=== PATIENT | male | born 1950 | race Caucasian/White ===

== ENCOUNTER 2022-09-19 08:54 | Day surgery (SDC) | payer MEDICARE ==
[~2022-09-19] VITALS: Ht 182.9 cm; Wt 79.0 kg
[~2022-09-19 08:54] MED LIST: CARV3.125 PO; CYCL10 PO; DESL5 PO; FLUD.1 PO; Fludrocortison0.1 MG PO; HYDCOR10 PO; HYDMOR2 PO; HYDR1TAB94 PO; IBUP800 PO; LEVSOD150 PO; OXYC10TA19 PO; PAIN RELIEVER500 MG PO; RABE20 PO; RXCYCL10 PO; TAMS.4ER PO; TRAM50 PO; [UNRECOGNIZED DRUG - REMARK]
== END 2022-09-19 11:15 | disposition home or self-care (01) ==
LOC: ORSCSDS 08:54
PROVIDERS: Surgery
PROC: 0DJD8ZZ Inspection of Lower Intestinal Tract, Via Natural or Artificial Opening Endoscopic (ICD-10-PCS; principal; 2022-09-19 10:30)
DX: K62.5 Hemorrhage of anus and rectum (principal); Z86.010 Personal history of colon polyps; K59.00 Constipation, unspecified; K21.9 Gastro-esophageal reflux disease without esophagitis; E78.5 Hyperlipidemia, unspecified; E03.9 Hypothyroidism, unspecified; I42.9 Cardiomyopathy, unspecified; Z87.891 Personal history of nicotine dependence; Z79.899 Other long term (current) drug therapy
CPT/HCPCS: J2704; J7120

== ENCOUNTER 2024-08-11 11:42 | Emergency (ER) | payer MEDICARE ==
[~2024-08-11] VITALS: Ht 182.9 cm; Wt 78.0 kg
[~2024-08-11 11:42] MED LIST changes: +ACET500 PO; -PAIN RELIEVER500 MG PO
[2024-08-11 12:47] LABS: Source, Urine Clean Catch
[2024-08-11 12:50] LABS: Appearance, Urine Hazy (Clear); Bilirubin, Urine Neg (Neg); Blood, Urine 3+ (Neg); Color, Urine Yellow (P-Yellow); Glucose Qualitative, Urine Neg (Neg); Ketones, Urine Neg (Neg); Leukocyte Esterase, Urine 1+ (Neg); Nitrite, Urine Pos (Neg); Protein, Urine 3+ (Neg); Urobilinogen, Urine 2+ (Normal); pH, Urine 6.5 (5.0-8.0)
[2024-08-11 12:56] LABS: BASOPHILS ABSOLUTE AUTO 0.09 K/mm3 (0.00-0.23); BASOPHILS PERCENT AUTO 1 % (0-2); EOSINOPHILS ABSOLUTE AUTO 0.11 K/mm3 (0.00-0.68); EOSINOPHILS PERCENT AUTO 1 % (0-6); Hematocrit 43.1 % (37.0-53.0); Hemoglobin 15.1 g/dL (13.5-17.5); IMMATURE GRAN ABSOLUTE AUTO 0.06 K/mm3 (0.00-0.10); IMMATURE GRAN PERCENT AUTO 0 % (0-1); LYMPHOCYTES ABSOLUTE AUTO 2.56 K/mm3 (0.84-5.20); LYMPHOCYTES PERCENT AUTO 16 % (21-46); MONOCYTES ABSOLUTE AUTO 2.41 K/mm3 (0.16-1.47); MONOCYTES PERCENT AUTO 15 % (4-13); Mean Corpuscular HGB 30.6 pg (26.0-34.0); Mean Corpuscular Volume 87 fL (80-100); Mean Platelet Volume 12.9 fL (9.1-12.4); NEUTROPHILS ABSOLUTE AUTO 11.22 K/mm3 (1.96-9.15); NEUTROPHILS PERCENT AUTO 68 % (41-73); Platelet Count 147 K/mm3 (150-400); RDW Coefficient Variation 12.3 % (11.7-14.2); RDW Standard Deviation 39.5 fL (35.1-46.3); Red Blood Cell Count 4.93 M/mm3 (4.30-5.90); White Blood Cell Count 16.45 K/mm3 (4.00-11.30)
[2024-08-11 13:00] LABS: Bacteria Many /hpf; Squamous Epithelial Cells Rare /hpf (Few)
[2024-08-11 13:16] LABS: Albumin, Blood 3.5 g/dL (3.4-5.0); Albumin/Globulin Ratio 1.1 (0.8-1.8); Bilirubin, Total 1.4 mg/dL (0.1-1.0); Bun/Creatinine Ratio 13.9 (12.0-20.0); Calcium, Blood 9.2 mg/dL (8.5-10.1); Creatinine, Blood 1.01 mg/dL (0.60-1.20); Globulin, Blood 3.1 g/dL (2.2-4.0); Potassium, Blood 3.6 mmol/L (3.5-5.5); Total Protein, Blood 6.6 g/dL (6.4-8.2)
[2024-08-11] MEDS ORDERED: CEPH500 PO (16:49)
[2024-08-11] MEDS ORDERED: Cephalexin Monohydrate 500 MG Cap PO ONE (16:50)
[2024-08-11 17:08] VITALS: BP 132/80
== END 2024-08-11 17:10 | disposition home or self-care (01) ==
LOC: ER 11:42
PROVIDERS: Physician Assistant
DX: N39.0 Urinary tract infection, site not specified (principal); E03.9 Hypothyroidism, unspecified; Z87.891 Personal history of nicotine dependence; Z88.5 Allergy status to narcotic agent; Z88.2 Allergy status to sulfonamides; Z88.8 Allergy status to other drugs, medicaments and biological substances; Z88.1 Allergy status to other antibiotic agents; Z79.899 Other long term (current) drug therapy; Z79.890 Hormone replacement therapy
CPT/HCPCS: 74176; 80053; 81001; 85025; 87077; 87086; 87186; 93005; 93010; 99284-25; A9270

== ENCOUNTER 2024-08-14 11:59 | Inpatient (IN) | payer MEDICARE, OTHER ==
[~2024-08-14] VITALS: Ht 182.9 cm; Wt 68.0 kg
[~2024-08-14 11:59] MED LIST changes: +CEPH500 PO
[2024-08-14] MEDS ORDERED: OxyCODONE HCL 5 MG TAB PO ONE (15:10)
[2024-08-14] MEDS ORDERED: Hydrocortisone 20 MG Tab PO ONE (15:10)
[2024-08-14] MEDS ORDERED: NS 1,000 ML IV SCH (15:10)
[2024-08-14] MEDS ORDERED: Cephalexin Monohydrate 500 MG Cap PO ONE (15:10)
[2024-08-14] MEDS ORDERED: Gabapentin 300 MG Cap PO ONE (15:15)
[2024-08-14] MEDS ORDERED: Ondansetron HCl 2 MG / ML 2ML Vial IV ONE (15:15)
[2024-08-14] MEDS ORDERED: Acetaminophen 325 MG TABLET PO ONE (15:15)
[2024-08-14 15:43] LABS: Source, Urine Foley catheter
[2024-08-14 15:47] LABS: Appearance, Urine Clear (Clear); Bilirubin, Urine Neg (Neg); Blood, Urine 3+ (Neg); Color, Urine Amber (P-Yellow); Glucose Qualitative, Urine Neg (Neg); Ketones, Urine Neg (Neg); Leukocyte Esterase, Urine 1+ (Neg); Nitrite, Urine Neg (Neg); Protein, Urine 2+ (Neg); Urobilinogen, Urine 1+ (Normal)
[2024-08-14 16:00] LABS: Bacteria Few /hpf; Red Blood Cells, Urine 0-2 /hpf (0-2); Squamous Epithelial Cells Not Seen /hpf (Few); White Blood Cells, Urine 0-2 /hpf (0-5)
[2024-08-14 17:13] LABS: BASOPHILS ABSOLUTE AUTO 0.04 K/mm3 (0.00-0.23); BASOPHILS PERCENT AUTO 0 % (0-2); EOSINOPHILS ABSOLUTE AUTO 0.03 K/mm3 (0.00-0.68); EOSINOPHILS PERCENT AUTO 0 % (0-6); Hematocrit 35.8 % (37.0-53.0); Hemoglobin 12.5 g/dL (13.5-17.5); IMMATURE GRAN ABSOLUTE AUTO 0.07 K/mm3 (0.00-0.10); IMMATURE GRAN PERCENT AUTO 1 % (0-1); LYMPHOCYTES ABSOLUTE AUTO 0.38 K/mm3 (0.84-5.20); LYMPHOCYTES PERCENT AUTO 4 % (21-46); MONOCYTES ABSOLUTE AUTO 1.07 K/mm3 (0.16-1.47); MONOCYTES PERCENT AUTO 10 % (4-13); Mean Corpuscular HGB 30.4 pg (26.0-34.0); Mean Corpuscular HGB Conc 34.9 g/dL (31.5-36.5); Mean Corpuscular Volume 87 fL (80-100); NEUTROPHILS ABSOLUTE AUTO 9.04 K/mm3 (1.96-9.15); NEUTROPHILS PERCENT AUTO 85 % (41-73); Platelet Count 164 K/mm3 (150-400); RDW Coefficient Variation 12.7 % (11.7-14.2); RDW Standard Deviation 40.8 fL (35.1-46.3); Red Blood Cell Count 4.11 M/mm3 (4.30-5.90); White Blood Cell Count 10.63 K/mm3 (4.00-11.30)
[2024-08-14 17:21] LABS: Mean Platelet Volume 13.4 fL (9.1-12.4)
[2024-08-14 18:08] LABS: Bun/Creatinine Ratio 19.2 (12.0-20.0); Calcium, Blood 8.2 mg/dL (8.5-10.1); Creatinine, Blood 2.4 mg/dL (0.60-1.20); Potassium, Blood 3.8 mmol/L (3.5-5.5)
[2024-08-14] MEDS ORDERED: FLU VACC TS2024-25(6MOS UP)/PF 45 MCG/0.5 ML SYRINGE IM SCH (18:55)
[2024-08-14] MEDS ORDERED: Lactated Ringer's 1,000 ML IV SCH (19:00)
[2024-08-14] MEDS ORDERED: Ondansetron HCl 2 MG / ML 2ML Vial IV PRN (19:00)
[2024-08-14] MEDS ORDERED: OxyCODONE HCL 5 MG TAB PO PRN (19:00)
[2024-08-14] MEDS ORDERED: HYDROCODONE-AC1 EA19 PO (19:36)
[2024-08-14 20:27] VITALS: BP 122/85
[2024-08-14] MEDS ORDERED: BACLOFEN10 M4 PO (20:57)
[2024-08-14] MEDS ORDERED: FINA5 PO (20:58)
[2024-08-14] MEDS ORDERED: Lactobacil 2-S.Thermo-Bifido 1 1 Cap PO SCH (21:00)
[2024-08-14] MEDS ORDERED: Sennosides 8.6 MG Tab PO SCH (21:00)
[2024-08-15 02:22] VITALS: BP 114/67
[2024-08-15] MEDS ORDERED: Levothyroxine Sodium 0.15 MG Tab PO SCH (06:00)
[2024-08-15] MEDS ORDERED: Omeprazole 20 MG CapCR PO SCH (06:00)
--- NOTE | 2024-08-15 06:16 | NUR ---
SHIFT SUMMARY PT ADMITTED TO ROOM 338 AT 2015 FOR JOHNNY, URINARY RETENTION, AND UTI. PT IS A&O X4 BUT [place]. JUAN CATHETER DRAINING [place] COLORED URINE, LIGHTENING IN COLOR THROUGH THE NIGHT. IVF INFUSING PER ORDER. PT DENIES THE NEED FOR ANY PAIN MEDICATION- DOES HAVE CHRONIC BACK PAIN BUT RATING PAIN 2/10. BED IN LOWEST POSITION, CALL LIGHT WITHIN REACH, SIDE RAILS UP X2.
[2024-08-15 06:29] LABS: Albumin, Blood 2.3 g/dL (3.4-5.0); Albumin/Globulin Ratio 0.8 (0.8-1.8); Bilirubin, Total 0.6 mg/dL (0.1-1.0); Bun/Creatinine Ratio 24.1 (12.0-20.0); Calcium, Blood 8.8 mg/dL (8.5-10.1); Creatinine, Blood 1.74 mg/dL (0.60-1.20); Globulin, Blood 2.8 g/dL (2.2-4.0); Magnesium, Blood 2.7 mg/dL (1.6-2.4); Potassium, Blood 3.6 mmol/L (3.5-5.5); Total Protein, Blood 5.1 g/dL (6.4-8.2)
[2024-08-15 07:40] VITALS: BP 112/69
[2024-08-15] MEDS ORDERED: Cephalexin Monohydrate 500 MG Cap PO SCH ×2 (09:00)
[2024-08-15] MEDS ORDERED: Hydrocortisone 20 MG Tab PO SCH (09:00)
[2024-08-15] MEDS ORDERED: Heparin Sodium 5000 Units/ML 1ML MDV SC SCH (09:00)
[2024-08-15] MEDS ORDERED: Tamsulosin HCl 0.4 MG Cap PO SCH (09:00)
[2024-08-15] MEDS ORDERED: Fludrocortisone Acetate 0.1 MG Tab PO SCH (09:00)
[2024-08-15] MEDS ORDERED: Finasteride 5 MG Tab PO SCH (09:00)
[2024-08-15 17:11] VITALS: BP 124/76
--- NOTE | 2024-08-15 17:26 | NUR ---
SHIFT SUMMARY: PT AOX4 WITH SOME MILD CONFUSION. ACUTE RETENTION AND LARGE PROSTATE SO JUAN PLACED AND HAS BEEN DRAINING A LOT OF FLUID. PT HAVING STABLE PO INTAKE WELL CONSTANT LR AT 125. PT COMPLAINED OF BACK PAIN AND MEDICATED PER EMR. DID MAKE PT SLIGHTLY DROWSY BUT DID RELIEVE PAIN. PT CALLS APPROPRIATELY AND WAS ABLE TO STAND PIVOT TO CHAIR WITH 1PA FWW AND GAIT BELT. PT PLEASANT MOOD AND AFFECT. RESTING IN BED, BED IN LOWEST POSITION AND CALLL LIGHT IN REACH. CONTINUING CARE.
[2024-08-15 19:54] VITALS: BP 125/67
[2024-08-16 03:02] VITALS: BP 94/51
--- NOTE | 2024-08-16 04:33 | NUR ---
SHIFT SUMMARY PT ALERT ORIENTED ABLE TO VERBALIZE NEEDS AND CALLS APPROPRIATELY. C/O BACK PAIN MEDICATED WITH OXY WITH GOOD PAIN RELIEF. REMAINS ON KEFLEX QID FOR UTI. HAS A JUAN DRAINING YELLOW URINE. REMAINS ON LR AT 125. NO C/O ABD PAIN THIS SHIFT. VSS ON RA SATTING AT 96%. SLEPT MOST OF THE SHIFT BUT WOKE UP WHEN BEING SPOKEN TO. HE REQUIRES ASSIST TO BE TURNED IN THE BED. HES KEPT REPOSITIONED. RESTING IN BED AT THIS TIME WITH CALL LIGHT IN REACH
[2024-08-16 06:49] LABS: Hematocrit 31.3 % (37.0-53.0); Hemoglobin 10.9 g/dL (13.5-17.5); Mean Corpuscular HGB 30.9 pg (26.0-34.0); Mean Corpuscular HGB Conc 34.8 g/dL (31.5-36.5); Mean Corpuscular Volume 89 fL (80-100); Mean Platelet Volume 12.3 fL (9.1-12.4); Platelet Count 191 K/mm3 (150-400); RDW Coefficient Variation 12.8 % (11.7-14.2); RDW Standard Deviation 41.6 fL (35.1-46.3); Red Blood Cell Count 3.53 M/mm3 (4.30-5.90); White Blood Cell Count 8.66 K/mm3 (4.00-11.30)
[2024-08-16 07:19] LABS: Bun/Creatinine Ratio 24.3 (12.0-20.0); Calcium, Blood 8.1 mg/dL (8.5-10.1); Creatinine, Blood 1.03 mg/dL (0.60-1.20); Potassium, Blood 3.4 mmol/L (3.5-5.5)
[2024-08-16 07:42] VITALS: BP 113/51
[2024-08-16] MEDS ORDERED: Potassium Chloride 10 Meq Tablet SA PO ONE (09:00)
[2024-08-16 16:12] VITALS: BP 100/58
--- NOTE | 2024-08-16 17:12 | NUR ---
SHIFT SUMMARY: PATIENT A/OX4, [place], WEARS HEARING AID TO BILAT EAR, ANSWER TO QUESTIONS APPROPRIATELY AND ABLE TO MAKE NEEDS KNOWN. PATIENT MEDICATED X1 FOR LOWER BACK PAIN PER EMAR c GOOD EFFECT. PATIENT DENIES CP/PRESSURE, SOB, N/V AND DIZZINESS. PATIENT RECEIVED PO ABX/SCHEDULED MEDS PER EMAR. PATIENT HAS GOOD APPETITE, JUAN IN PLACED FOR ACUTE RETENTION, PATENT DRAINING YELLOW URINE TO GRAVITY. VITAL SIGNS REVIEWED. PATIENT HAS PIV TO LAC INFUSING LR AT 125 MLS/HR. PATIENT HAS NO COMPLAINTS OR DENIES NEW CONCERNED THIS SHIFT. CALL LIGHT IN REACH.
[2024-08-16 19:54] VITALS: BP 104/58
[2024-08-17 03:22] VITALS: BP 130/79
--- NOTE | 2024-08-17 04:33 | NUR ---
SHIFT SUMMARY PT ALERT ORIENTED ABLE TO VERBAKLIZE NEEDS AND CALLS APPROPRIATELY. REMAINS ON LR AT 125. NO C/O ABD PAIN. DOES C/O BACK PAIN MEDICATED WITH OXY WITH GOOD PAIN RELIEF. WAS ABLE TO SLEEP MOST OF THE SHIFT. HAS A JUAN CATHETER DRAINING YELLOW URINE. VSS ON RA SATTING AT 95%. REMAINS ON KEFLEX ORDERED FOR UTI. PT WILL KEEP HIS JUAN IN ON DISCHARGE AND F/U OUTPATIENT WITH UROLOGY. HE REQUIRES ASSIST WITH REPOSITIONING AND TURNING IN THE BED. RESTING IN BED AT THIS TIME WITH CALL LIGHT IN REACH
[2024-08-17 05:50] LABS: BASOPHILS ABSOLUTE AUTO 0.09 K/mm3 (0.00-0.23); BASOPHILS PERCENT AUTO 1 % (0-2); EOSINOPHILS ABSOLUTE AUTO 0.31 K/mm3 (0.00-0.68); EOSINOPHILS PERCENT AUTO 4 % (0-6); Hematocrit 31.3 % (37.0-53.0); Hemoglobin 10.9 g/dL (13.5-17.5); IMMATURE GRAN ABSOLUTE AUTO 0.06 K/mm3 (0.00-0.10); IMMATURE GRAN PERCENT AUTO 1 % (0-1); LYMPHOCYTES PERCENT AUTO 25 % (21-46); MONOCYTES ABSOLUTE AUTO 1.04 K/mm3 (0.16-1.47); MONOCYTES PERCENT AUTO 13 % (4-13); Mean Corpuscular HGB 31.1 pg (26.0-34.0); Mean Corpuscular HGB Conc 34.8 g/dL (31.5-36.5); Mean Corpuscular Volume 89 fL (80-100); Mean Platelet Volume 12.3 fL (9.1-12.4); NEUTROPHILS PERCENT AUTO 57 % (41-73); Platelet Count 201 K/mm3 (150-400); RDW Coefficient Variation 12.8 % (11.7-14.2)
[2024-08-17 06:22] LABS: Albumin, Blood 2.1 g/dL (3.4-5.0); Anion Gap 9 mmol/L (3-11); Blood Urea Nitrogen 17 mg/dL (8-24); Bun/Creatinine Ratio 18.4 (12.0-20.0); CO2, Blood 27 mmol/L (21-32); Calcium, Blood 8.3 mg/dL (8.5-10.1); Chloride, Blood 111 mmol/L (98-108); Creatinine, Blood 0.93 mg/dL (0.60-1.20); Glomerular Filtration Rate 87 (60-); Glucose, Blood 98 mg/dL (70-99); Magnesium, Blood 1.9 mg/dL (1.6-2.4); Phosphorus, Blood 2.2 mg/dL (2.5-4.9); Potassium, Blood 3.6 mmol/L (3.5-5.5); Sodium, Blood 143 mmol/L (136-145)
[2024-08-17 07:41] VITALS: BP 136/72
[2024-08-17] MEDS ORDERED: Sodium Phosphate Mono/Dibasic 250 MG Tab PO SCH (08:30)
[2024-08-17] MEDS ORDERED: Mag Hydrox/AL Hydrox/Simeth 30 ML UDC PO PRN (12:45)
[2024-08-17] MEDS ORDERED: Polyethylene Glycol 3350 17 gm PO ONE (13:00)
[2024-08-17] MEDS ORDERED: Polyethylene Glycol 3350 17 gm PO PRN (13:00)
[2024-08-17 16:06] VITALS: BP 146/75
--- NOTE | 2024-08-17 17:31 | NUR ---
SHIFT SUMMARY: PATIENT A/OX3-4, [place], PLEASANT AND COOPERATIVE c CARE. PATIENT REPORTS HE DID NOT HAD A GOOD NIGHT SLEPT LAST NIGHT, HAVING VISUAL HALLUCINATIONS "I WAS SEEING BUGS CRAWLING ON THE DIANA. I NORMALLY HAVING THIS EPISODE WHEN I TAKE MY PAIN MEDICATION, IT'S NOT NEW TO ME IT HAPPENED AT HOME. PATIENT REPORTS LOWER BACK PAIN, BUT REFUSED PAIN MEDS THIS SHIFT. PATIENT MEDICATED X1 FOR UPSET STOMACH PER EMAR c GOOD EFFECT. PATIENT HAS JUAN FOR ACUTE RETENTION, PATENT DRAINING YELLOW URINE TO GRAVITY. PATIENT HAS GOOD APPETITE, AND HAD 1 INCONTINENT BM THIS SHIFT. SCD'S IN PLACED TO BLE'S. PATIENT RECEIVED SCHEDULED MEDS PER EMAR, PIV TO LAC INFUSING LR AT 125 MLS/HR. VITAL SIGNS REVIEWED. CALL LIGHT IN REACH.
[2024-08-17 19:45] VITALS: BP 147/66
[2024-08-18 02:57] VITALS: BP 134/70
--- NOTE | 2024-08-18 03:48 | NUR ---
SHIFT SUMMARY A&OX3, [place], VSS, COOPERATIVE W/CARE, PT SLEPT INTERMITTENTLY T/O THE NIGHT, JUAN PATENT AND DRAINING YELLOW URINE, ON CONTINOUS IV FLUIDS, APPEARS TO BE SLEEPING AT THIS TIME, CALL LIGHT IN REACH, BED ALARM ACTIVE, WILL CONT TO MONITOR UNTIL REPORT GIVEN TO ONCOMING NURSE.
[2024-08-18 06:15] LABS: Albumin/Globulin Ratio 0.8 (0.8-1.8); Bilirubin, Total 0.5 mg/dL (0.1-1.0); Bun/Creatinine Ratio 13.6 (12.0-20.0); Creatinine, Blood 0.73 mg/dL (0.60-1.20); Globulin, Blood 2.4 g/dL (2.2-4.0); Total Protein, Blood 4.4 g/dL (6.4-8.2)
[2024-08-18 07:34] VITALS: BP 135/75
[2024-08-18] MEDS ORDERED: Potassium Phos/Sodium Phos 250 MG PACK PO ONE (12:30)
[2024-08-18] MEDS ORDERED: Potassium Chloride 10 Meq Tablet SA PO ONE ×2 (12:30)
[2024-08-18 12:36] LABS: CORONAVIRUS COVID-19 AG Negative (NEGATIVE); INFLUENZA A AG Negative (NEGATIVE); INFLUENZA B AG Negative (NEGATIVE)
--- NOTE | 2024-08-18 13:59 | NUR ---
PT DISCHARG[facility] TO [facility]. REPORT GIVEN TO RN AT FACILITY. PT TO BE PICKED UP APPROX [id number]
[2024-08-18] MEDS ORDERED: FLUDROCORTISON0.1 M1 PO (14:24)
[2024-08-18] MEDS ORDERED: HYDCOR10 PO (14:26)
[2024-08-18] MEDS ORDERED: EUTHYROX150 MCG PO (14:27)
[2024-08-18] MEDS ORDERED: TAMS.4ER PO (14:28)
[2024-08-18] MEDS ORDERED: OMEP20ER PO (14:28)
== END 2024-08-18 14:37 | DRG 683 ==
LOC: ER 11:59 → MEDS 18:51
PROVIDERS: Family Medicine; Nurse Practitioner Acute Care; Physician Assistant; Student in an Organized Health Care Education/Training Program; ADMIT Internal Medicine
PROC: 0T9B70Z Drainage of Bladder with Drainage Device, Via Natural or Artificial Opening (ICD-10-PCS; principal; 2024-08-14)
DX: N17.9 Acute kidney failure, unspecified (principal); E27.1 Primary adrenocortical insufficiency; N39.0 Urinary tract infection, site not specified; E03.9 Hypothyroidism, unspecified; R44.1 Visual hallucinations; N40.1 Benign prostatic hyperplasia with lower urinary tract symptoms; R33.8 Other retention of urine; I10 Essential (primary) hypertension; K21.9 Gastro-esophageal reflux disease without esophagitis; E86.0 Dehydration; B95.7 Other staphylococcus as the cause of diseases classified elsewhere; E87.6 Hypokalemia; M54.9 Dorsalgia, unspecified; E83.39 Other disorders of phosphorus metabolism; Z88.2 Allergy status to sulfonamides; Z88.5 Allergy status to narcotic agent; Z88.8 Allergy status to other drugs, medicaments and biological substances; Z88.1 Allergy status to other antibiotic agents; Z79.899 Other long term (current) drug therapy; Z79.890 Hormone replacement therapy; Z79.891 Long term (current) use of opiate analgesic; Z79.52 Long term (current) use of systemic steroids; Z79.2 Long term (current) use of antibiotics; Z98.890 Other specified postprocedural states; Z87.891 Personal history of nicotine dependence
CPT/HCPCS: 36415; 51702; 51798; 76770; 80048; 80053; 80069; 81001; 82550; 83605; 83735; 85025; 85027; 87040; 87086; 87428-QW; 96361; 96374-59; 97110-CQ; 97162; 97165; 97530; 97530-CQ; 97535; 99284-25; A9270; J1644; J2405; J7030; J7120